=== PATIENT | male | born 1940 | race African-American/Black ===

== ENCOUNTER 2017-07-15 13:14 | Emergency (ER) | payer MEDICARE, BC ==
[2017-07-15 14:15] VITALS: BP 162/97
--- NOTE | 2017-07-15 17:32 | UC ---
Respiratory Complaint HPI - HPI Summary HPI Summary: 77 yo Bm c/o cough x 2 weeks associated with productive cough, now with f/c/ bodyaches and BAD WEISS - History of Current Complaint Chief Complaint: UCGeneralIllness Stated Complaint: FLU SYMPTOMS Time Seen by Provider: 07/15/17 16:23 Hx Obtained From: Patient, Family/Teletypewriter Operator Severity Initially: Moderate Severity Currently: Moderate Pain Intensity: 6 Character: Cough: Productive - Allergies/Home Medications Allergies/Adverse Reactions: Allergies Allergy/AdvReac Type Severity Reaction Status Date / Time Sulfa (Sulfonamide Allergy Bleeding Verified 07/15/17 14:15 Antibiotics) Home Medications: Home Medications Carisoprodol TAB* [Soma TAB*] 360 mg PO DAILY 07/15/17 [History Confirmed 07/15] Felodipine (NF) [Plendil (NF)] 10 mg PO DAILY 07/15/17 [History Confirmed ] Lovastatin (NF) [Mevacor (NF)] 1 tab PO DAILY 07/15/17 [History Confirmed ] oxyCODONE/Acetamin 10/325(NF) [Percocet 10/325 (NF)] 1 tab PO Q6HR 07/15/17 [ History Confirmed 07/15/17] PMH/Surg Hx/FS Hx/Imm Hx Cardiovascular History: Hypertension - Surgical History Surgical History: Yes Surgery Procedure, Year, and Place: 3 back surgeries. prostate - Social History Alcohol Use: Rare Substance Use Type: None Smoking Status (MU): Never Smoked Tobacco - Immunization History Most Recent Tetanus Shot: UTD Review of Systems Constitutional: Fever, Chills, Fatigue Skin: Negative Eyes: Negative ENT: Negative Respiratory: Negative, Cough, Other - PLeuritic CP with yellow sputum Cardiovascular: Negative Gastrointestinal: Negative Genitourinary: Negative Motor: Negative Neurovascular: Negative Musculoskeletal: Negative, Other: Neurological: Negative Psychological: Negative Is Patient Immunocompromised?: No All Other Systems Reviewed And Are Negative: Yes Physical Exam Triage Information Reviewed: Yes Vital Signs: Initial Vital Signs Temp 37.1 C 07/15/17 14:07 Pulse 86 07/15/17 14:07 Resp 20 07/15/17 14:07 BP 162/97 07/15/17 14:07 Pulse Ox 97 07/15/17 14:07 Eye Exam: Normal ENT Exam: Normal Dental Exam: Normal Neck exam: Normal Neck: Positive: 1 Respiratory: Positive: Rhonchi. Negative: Normal breath sounds, No respiratory distress, Accessory muscle use, Crackles Cardiovascular Exam: Normal Abdominal Exam: Normal Musculoskeletal Exam: Normal Neurological Exam: Normal Psychological Exam: Normal Skin Exam: Normal UC Diagnostic Evaluation - Laboratory O2 Sat by Pulse Oximetry: 97 Respiratory Course/Dx - Course Course Of Treatment: cough x2 weeks with rhonchi-will cover for bacterial bronchitis with Z matty - Differential Dx/Diagnosis Differential Diagnosis/HQI/PQRI: Bronchitis, Influenza Provider Diagnoses: Bronchitis. Flu-like Viral illness Discharge - Discharge Plan Condition: Stable Disposition: HOME Prescriptions: Azithromycin TAB* [Zithromax TAB (Z-MATTY) 250 mg #6 tabs] 2 tab PO .TODAY, THEN 1 DAILY #1 matty Patient Education Materials: Acute Bronchitis (ED) Referrals: Dale Gonzales MD [Primary Care Provider] - Additional Instructions: Drinks lots of FLUIDS, if sx worsen with shortness of breath with worsening cough and sputum production, then go to ER
== END 2017-07-15 17:20 | disposition home or self-care (01) ==
LOC: UCEAST 13:14
DX: J40 Bronchitis, not specified as acute or chronic (principal); B34.9 Viral infection, unspecified; I10 Essential (primary) hypertension
CPT/HCPCS: 87502; 99212; G0463

== ENCOUNTER 2017-08-04 13:43 | Emergency (ER) | payer MEDICARE, BC ==
[2017-08-04] MEDS ORDERED: NS 0.9% 1000 ML* 1,000 ML IV SCH (14:00)
[2017-08-04 14:03] VITALS: BP 149/116
--- NOTE | 2017-08-04 14:14 | UC ---
Palpitation/Dysrhythmia HP - HPI Summary HPI Summary: SUDDEN ONSET OF PALPITATIONS, DIZZINESS, SOB AND WEISS THIS MORNING AROUND 10:30 AM AFTER WALKING UP THE STAIRS. SYMPTOMS HAVE PERSISTED. DENIES CP, NAUSEA, SWEATS, VISUAL DISTURBANCES. NO PREVIOUS CARDIAC HX. IS HERE ACCOMPANYING PT. - History of Current Complaint Stated Complaint: ELEVATED HEART RATE Time Seen by Provider: 08/04/17 13:47 Hx Obtained From: Patient, Family/Photogrammetric Tech - Onset/Duration: Sudden Onset, Lasting Hours, Still Present Timing: Constant Severity Initially: Moderate Severity Currently: Moderate Pain Intensity: 0 Pain Scale Used: 0-10 Numeric Character: Fast Aggravating Factor(s): Exertion Alleviating Factor(s): Nothing Associated Signs & Symptoms: Positive: Lightheadedness, Dizzy, Shortness of Breath. Negative: Chest Pain, Diaphoresis, Nausea, Vomiting - Allergy/Home Medications Allergies/Adverse Reactions: Allergies Allergy/AdvReac Type Severity Reaction Status Date / Time Sulfa (Sulfonamide Allergy Bleeding Verified 08/04/17 13:48 Antibiotics) PMH/Surg Hx/FS Hx/Imm Hx Endocrine History: Dyslipidemia Cardiovascular History: Hypertension - Surgical History Surgical History: Yes Surgery Procedure, Year, and Place: 3 back surgeries. prostate - Family History Known Family History: Positive: Hypertension - Social History Alcohol Use: Rare Substance Use Type: None Smoking Status (MU): Never Smoked Tobacco - Immunization History Most Recent Tetanus Shot: UTD Review of Systems Constitutional: Negative Respiratory: Negative Cardiovascular: Palpitations Gastrointestinal: Negative Genitourinary: Negative Neurological: Headache, Other - DIZZY All Other Systems Reviewed And Are Negative: Yes Physical Exam Triage Information Reviewed: Yes Appearance: Well-Appearing, No Pain Distress, Well-Nourished Vital Signs: Initial Vital Signs Temp 97.7 F 08/04/17 13:58 Pulse 117 08/04/17 13:58 Resp 18 08/04/17 13:58 BP 149/116 08/04/17 13:58 Pulse Ox 97 08/04/17 13:58 Vital Signs Reviewed: Yes Eyes: Positive: Conjunctiva Clear ENT: Positive: Hearing grossly normal Neck: Positive: Supple, Nontender, No Lymphadenopathy Respiratory Exam: Normal Cardiovascular: Positive: Tachycardia Abdomen Description: Positive: Soft Musculoskeletal: Positive: No Edema Neurological: Positive: Alert Psychological: Positive: Normal Response To Family, Age Appropriate Behavior Skin: Negative: rashes Diagnostics - EKG Cardiac Rate: Tachycardia - 111BPM Cardiac Rhythm: Sinus: Normal Ectopy: None ST Segment: Non-Specific - T WAVE INVERSION INFERIOR AND LATERAL LEADS Palpitations Course/Dx - Differential Dx/Diagnosis Provider Diagnoses: PALPITATIONS/DIZZY/SOB - Physician Notifications Discussed Patient Care With: Dale Abreu - TO [facility] ED BY AMBULANCE Time Discussed With Above Provider: 14:05 Instructed by Provider To: MD Will See In ED Discharge - Discharge Plan Condition: Stable Disposition: TRANS HIGHER LVL OF CARE FAC Referrals: Dale Gonzales MD [Primary Care Provider] -
== END 2017-08-04 14:28 | disposition short-term general hospital (02) ==
LOC: UCEAST 13:43
DX: R00.2 Palpitations (principal); R42 Dizziness and giddiness; R06.02 Shortness of breath; R00.0 Tachycardia, unspecified; E78.5 Hyperlipidemia, unspecified; I10 Essential (primary) hypertension; Z88.2 Allergy status to sulfonamides
CPT/HCPCS: 93005; 96360; 99213; G0463

== ENCOUNTER 2017-08-04 14:42 | Emergency (ER) | payer MEDICARE, BC ==
[2017-08-04 15:45] LABS: ABS Basophils 0.1 10^3/ul (0-0.2); ABS Eosinophils 0.1 10^3/ul (0-0.6); ABS Monocytes 0.5 10^3/ul (0-0.8); ABS Neutrophils 4.2 10^3/ul (1.5-7.7); ABS Nucleated RBC 0 10^3/ul; Eosinophil % 1.8 % (0-6); Hematocrit 42 % (42-52); Hemoglobin 13.7 g/dl (14.0-18.0); Lymphocyte % 17.6 % (25-47); Mean Corpuscular HGB Conc 33 g/dl (31-36); Mean Corpuscular Hemoglobin 32 pg (27-31); Mean Corpuscular Volume 96 fL (80-94); Mean Platelet Volume 7 um3 (7.4-10.4); Nucleated Red Blood Cells % 0; Platelet Count 296 10^3/ul (150-450); Red Blood Count 4.34 10^6/ul (4.0-5.4); Red Cell Distribution Width 13 % (10.5-15); White Blood Count 5.9 10^3/ul (3.5-10.8)
--- NOTE | 2017-08-04 15:56 | RAD ---
Indication: Dyspnea. 2 views of the chest including dual energy PA views demonstrate no mediastinal shift. Heart is of normal size and configuration. Lung trejo are clear. When compared to previous exam of October 23, 2015 no significant change is noted. IMPRESSION: No active cardiopulmonary disease is identified.
[2017-08-04 15:58] LABS: EGFR Non-African American 56.5 (>60)
[2017-08-04] MEDS ORDERED: oxyCODONE/Acetamin 10/325(NF) TAB PO ONE (16:32)
[2017-08-04] MEDS ORDERED: oxyCODONE/Acetamin 5/325 MG* TAB ONE (16:42)
[2017-08-04] MEDS ORDERED: oxyCODONE/Acetamin 5/325 MG* TAB PO ONE (16:43)
[2017-08-04 17:13] VITALS: BP 146/90
--- NOTE | 2017-08-11 23:40 | ED ---
Jaswant Beach Julia, scribed for Dale Abreu MD on 08/04/17 at 1500 . Palpitations / Dysrhythmia - HPI Summary HPI Summary: This patient is a 77 year [facility] with a chief complaint of dizziness, elevated HR, and SOB since 10:30 this morning. Patient denies chest pain and lower extremity edema. Patient denies new medication, besides taking Excedrin once a day for recent headaches. Patient rates headaches 8/10 in severity. Patient has had three previous back operations and bladder and prostate surgery. - History of Current Complaint Hx Obtained From: Patient Onset/Duration: Sudden Onset, Lasting Hours, Still Present Timing: Constant Character: Fast Associated Signs & Symptoms: Dizzy, Shortness of Breath - Allergy/Home Medications Allergies/Adverse Reactions: Allergies Allergy/AdvReac Type Severity Reaction Status Date / Time Sulfa (Sulfonamide Allergy Bleeding Verified 08/04/17 13:48 Antibiotics) Home Medications: Home Medications Lovastatin (NF) [Mevacor (NF)] 40 mg PO DAILY WITH MEAL 08/04/17 [History Confirmed 08/04/17] PMH/Surg Hx/FS Hx/Imm Hx Cardiovascular History: Reports: Hx Hypertension Denies: Hx Myocardial Infarction Musculoskeletal History: Denies: Hx Scoliosis - Surgical History Surgery Procedure, Year, and Place: 3 back surgeries. prostate - Family History Known Family History: Positive: Hypertension - Social History Alcohol Use: Rare Substance Use Type: Reports: None Hx Tobacco Use: Yes - quit 12 years ago Smoking Status (MU): Former Smoker Review of Systems Positive: Other - elevated heart rate. Negative: Chest Pain Positive: Shortness Of Breath Negative: Edema Neurological: Other - dizzy All Other Systems Reviewed And Are Negative: Yes Physical Exam - Summary Physical Exam Summary: Appearance: Well appearing, no pain distress Skin: warm, dry, reflects adequate perfusion Head/face: normal Eyes: EOMI, BRANDIN ENT: normal Neck: supple, non-tender Respiratory: breath sounds present, rales at R base that cleared with cough Cardiovascular: RRR, pulses symmetrical Abdomen: non-tender, soft Bowel: present Musculoskeletal: normal, strength/ROM intact Neuro: normal, sensory motor intact, A&Ox3 Triage Information Reviewed: Yes Vital Signs Reviewed: Yes Diagnostics - Laboratory Result Diagrams: 08/04/17 15:32 08/04/17 15:32 Lab Statement: Any lab studies that have been ordered have been reviewed, and results considered in the medical decision making process. - Radiology CXR Radiology Interpretation Completed By: Radiologist - No active cardiopulmonary disease is identified. ED Physician has reviewed this report. - EKG 1511 Cardiac Rate: NL - at 95 BPM EKG Rhythm: Sinus Rhythm EKG Interpretation: LVH Course/Dx - Course Course Of Treatment: This patient presents with dizziness, elevated HR, and SOB since 10:30 this morning. Patient report recent headaches Patient denies chest pain and lower extremity edema. An EKG reveals LVH, but is of no acute concern. CXR is of no acute concern. Bloodowork is unremarkable. Patient is given Oxycodone. Patient is prescribed with Metoprolol to lower blood pressure. - Diagnoses Provider Diagnoses: Tachycardia, unspecified Discharge - Discharge Plan Condition: Good Disposition: HOME Prescriptions: Metoprolol Succinate XL TAB* [Toprol XL TAB*] 50 mg PO DAILY #30 tab.xl Patient Education Materials: Tachycardia (ED) Referrals: Dale Gonzales MD [Primary Care Provider] - The documentation as recorded by the Jaswant flores Julia accurately reflects the service I personally performed and the decisions made by , Dale Abreu MD.
== END 2017-08-04 17:13 | disposition home or self-care (01) ==
LOC: ED 14:42
DX: R00.0 Tachycardia, unspecified (principal); R42 Dizziness and giddiness; R06.02 Shortness of breath; Z86.79 Personal history of other diseases of the circulatory system; Z87.891 Personal history of nicotine dependence
CPT/HCPCS: 36415; 71046; 80053; 83880; 84443; 85025; 85379; 93005; 99283; A9270-GY

== ENCOUNTER 2017-12-09 17:00 | Emergency (ER) | payer BC, MEDICARE, OTHER ==
[2017-12-09] MEDS ORDERED: predniSONE TAB* 20 MG PO ONE (17:29)
[2017-12-09] MEDS ORDERED: oxyCODONE/Acetamin 5/325 MG* TAB PO ONE (17:29)
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
[2017-12-09 21:35] VITALS: BP 151/77
== END 2017-12-09 21:33 | disposition home or self-care (01) ==
LOC: ED 17:00
DX: S30.0XXA Contusion of lower back and pelvis, initial encounter (principal); V43.52XA Car driver injured in collision with other type car in traffic accident, initial encounter; Y92.410 Unspecified street and highway as the place of occurrence of the external cause; M54.30 Sciatica, unspecified side; M47.816 Spondylosis without myelopathy or radiculopathy, lumbar region; Z87.891 Personal history of nicotine dependence; Z88.2 Allergy status to sulfonamides; Z98.1 Arthrodesis status
CPT/HCPCS: 72110; 99283; A9270-GY; J7512

== ENCOUNTER 2023-07-16 17:26 | Inpatient (IN) ==
[2023-07-16 18:48] LABS: Hematocrit 46.9 % (38-53); Hemoglobin 15.5 g/dL (13.2-16.3); Mean Corpuscular Hemoglobin 30.9 pg (27-33); Mean Corpuscular Volume 93.7 fL (80-97); Mean Platelet Volume 8.1 fL (7.5-11.2); Platelet Count 311 10^3/uL (150-450); Red Blood Count 5.01 10^6/uL (4.06-5.63); Red Cell Distribution Width 16.4 % (12-17); White Blood Count 7.7 10^3/uL (3.6-10.2)
[2023-07-16 19:14] LABS: High Sens Troponin Baseline 23 pg/mL (<20)
[2023-07-16 19:18] LABS: ABS Basophils 0.1 10^3/uL (0.0-0.1); ABS Eosinophils 0.1 10^3/uL (0.0-0.5); ABS Lymphocytes 1.3 10^3/uL (1.0-4.8); ABS Monocytes 0.5 10^3/uL (0.0-1.1); ABS Neutrophils 5.6 10^3/uL (1.5-7.6); ABS Nucleated RBC 0.02 10^3/ul; ALT 52 U/L (7-52); Albumin 4.4 g/dL (3.2-5.2); Albumin/Globulin Ratio 1.4 (1-3); Alkaline Phosphatase 89 U/L (35-149); Anion Gap 12 mmol/L (2-16); Blood Urea Nitrogen 17 mg/dL (6-24); CO2 Carbon Dioxide 26 mmol/L (22-32); Calcium 9.8 mg/dL (8.6-10.3); Chloride 98 mmol/L (101-111); Creatinine, Serum 1.33 mg/dL (0.67-1.17); Eosinophil % 1.4 %; Globulin 3.1 g/dL (2-4); Glucose 85 mg/dL (70-100); Lymphocyte % 17.5 %; Nucleated Red Blood Cells % 0.2 %/100WBC (0.0-0.8); RBC Morphology Normal (Normal); Sodium 136 mmol/L (135-145); Total Bilirubin 0.9 mg/dL (0.2-1.0); Total Protein 7.5 g/dL (6.4-8.9)
[2023-07-16 20:37] LABS: Potassium Redraw 4.1 mmol/L (3.5-5.0)
[2023-07-16] MEDS: Furosemide 40 mg/4 ml IV VIAL IV SLOW PU ONE (20:44)
[2023-07-16 23:17] LABS: TSH Ultra Thyroid Stim Horm 3.23 mcIU/mL (0.34-5.60)
[2023-07-17 01:15] LABS: Urine Appearance No Cx Clear (Clear); Urine Bilirubin No Culture Negative (Negative); Urine Blood No Culture Negative (Negative); Urine Color No Culture Colorless; Urine Glucose No Culture Negative (Negative); Urine Ketones No Culture Negative (Negative); Urine Leukocytes No Culture Negative Leu/uL (Negative); Urine Nitrite No Culture Negative (Negative); Urine Protein No Culture Negative (Negative); Urine Specific Gravity No Cx 1.004 (1.002-1.030); Urine Urobilinogen No Cx Negative (Negative); Urine pH No Culture 6.5 (5.0-8.0)
[2023-07-17 01:36] LABS: Ur Squamous Epithelial No Cx Present /HPF (Absent); Urine Bacteria No Culture Absent /HPF (Absent); Urine Red Blood Cell No Cult Absent /HPF (0-Trace); Urine White Blood Cell No Cult Absent /HPF (0-Trace)
[2023-07-17] MEDS: Furosemide 40 mg/4 ml IV VIAL IV SLOW PU SCH (05:08)
[2023-07-17 07:01] LABS: Creatinine, Serum 1.18 mg/dL (0.67-1.17); Potassium 3.8 mmol/L (3.5-5.0); eGFR CKD-EPI 61.2 (>60)
[2023-07-17] MEDS: Mometasone/Formoter 200/5 MDI INH SCH (07:34)
[2023-07-17] MEDS: Aspirin EC 81 mg TAB.EC (enteric coated) PO SCH (11:45)
[2023-07-17] MEDS: oxyCODONE/Acetamin 5/325 mg TAB PO PRN (16:06)
[2023-07-17] MEDS: Magnesium Hydroxide LIQ 30 ML UDC PO PRN (16:13)
[2023-07-18 05:49] LABS: ABS Basophils 0.1 10^3/uL (0.0-0.1); ABS Eosinophils 0.1 10^3/uL (0.0-0.5); ABS Lymphocytes 1.1 10^3/uL (1.0-4.8); ABS Monocytes 0.7 10^3/uL (0.0-1.1); ABS Neutrophils 4.1 10^3/uL (1.5-7.6); ABS Nucleated RBC 0.01 10^3/ul; Eosinophil % 1.9 %; Hematocrit 38.4 % (38-53); Hemoglobin 12.7 g/dL (13.2-16.3); Lymphocyte % 18.4 %; Mean Corpuscular Hemoglobin 30.3 pg (27-33); Mean Corpuscular Volume 91.9 fL (80-97); Mean Platelet Volume 8.1 fL (7.5-11.2); Nucleated Red Blood Cells % 0.1 %/100WBC (0.0-0.8); Platelet Count 228 10^3/uL (150-450); Red Blood Count 4.18 10^6/uL (4.06-5.63); Red Cell Distribution Width 16.8 % (12-17); White Blood Count 6.1 10^3/uL (3.6-10.2)
[2023-07-18 06:05] LABS: Calcium 8.7 mg/dL (8.6-10.3); Creatinine, Serum 1.09 mg/dL (0.67-1.17); Potassium 3.5 mmol/L (3.5-5.0); eGFR CKD-EPI 67.3 (>60)
[2023-07-18] MEDS: Potassium Chlor 20 meq TAB.ER PO ONE (09:16)
[2023-07-18] MEDS: Furosemide 40 mg/4 ml IV VIAL IV ONE (13:00)
[2023-07-19 06:49] LABS: Calcium 8.7 mg/dL (8.6-10.3); Creatinine, Serum 1.37 mg/dL (0.67-1.17); Magnesium 2.2 mg/dL (1.9-2.7); eGFR CKD-EPI 51.2 (>60)
[2023-07-19] MEDS ORDERED: Sulfur Hexaflouride MICROSPHR 25 MG VIAL ONE (08:24)
[2023-07-19] MEDS: CMCS:Epleronone 25 mg TAB (NF) PO SCH (09:27)
[2023-07-19 12:09] LABS: ABS Basophils 0.1 10^3/uL (0.0-0.1); ABS Eosinophils 0.2 10^3/uL (0.0-0.5); ABS Lymphocytes 1.2 10^3/uL (1.0-4.8); ABS Monocytes 0.5 10^3/uL (0.0-1.1); ABS Neutrophils 4.5 10^3/uL (1.5-7.6); ABS Nucleated RBC 0.01 10^3/ul; Eosinophil % 2.4 %; Hematocrit 40.6 % (38-53); Hemoglobin 13.6 g/dL (13.2-16.3); Mean Corpuscular Hemoglobin 31.3 pg (27-33); Mean Corpuscular Hgb Conc 33.4 g/dL (31-36); Mean Corpuscular Volume 93.7 fL (80-97); Mean Platelet Volume 8.1 fL (7.5-11.2); Nucleated Red Blood Cells % 0.1 %/100WBC (0.0-0.8); Platelet Count 238 10^3/uL (150-450); Red Blood Count 4.33 10^6/uL (4.06-5.63); Red Cell Distribution Width 16.7 % (12-17); White Blood Count 6.4 10^3/uL (3.6-10.2)
[2023-07-19 12:20] LABS: Activated Partial Thrombo Time 28.2 seconds (26.0-38.0); INR 1.61 (0.83-1.13)
[2023-07-19 12:26] LABS: Calcium 8.9 mg/dL (8.6-10.3); Creatinine, Serum 1.26 mg/dL (0.67-1.17); Potassium 3.7 mmol/L (3.5-5.0); eGFR CKD-EPI 56.6 (>60)
[2023-07-19 16:54] LABS: HDL Cholesterol 53.9 mg/dL
[2023-07-19 17:07] LABS: Ferritin 39.3 ng/mL (24-336)
[2023-07-19] MEDS ORDERED: Heparin 5000 UNITS/ML 1 mL VIAL IV SCH (18:00)
[2023-07-19] MEDS: Heparin DRIP 25,000 UNITS BAG 25,000 UNITS/250 ML BAG IV SCH (22:25)
[2023-07-20 05:34] LABS: Hematocrit 41.3 % (38-53); Hemoglobin 13.5 g/dL (13.2-16.3); Mean Corpuscular Hemoglobin 30.6 pg (27-33); Mean Corpuscular Hgb Conc 32.8 g/dL (31-36); Mean Corpuscular Volume 93.1 fL (80-97); Mean Platelet Volume 8.4 fL (7.5-11.2); Platelet Count 233 10^3/uL (150-450); Red Blood Count 4.43 10^6/uL (4.06-5.63); Red Cell Distribution Width 17.1 % (12-17); White Blood Count 6.9 10^3/uL (3.6-10.2)
[2023-07-20 05:53] LABS: Calcium 9.1 mg/dL (8.6-10.3); Creatinine, Serum 1.16 mg/dL (0.67-1.17); Potassium 4.4 mmol/L (3.5-5.0); eGFR CKD-EPI 62.5 (>60)
[2023-07-20 06:14] LABS: ABS Basophils 0.1 10^3/uL (0.0-0.1); ABS Eosinophils 0.1 10^3/uL (0.0-0.5); ABS Lymphocytes 1.2 10^3/uL (1.0-4.8); ABS Monocytes 0.5 10^3/uL (0.0-1.1); Eosinophil % 1.4 %; Lymphocyte % 17.9 %; RBC Morphology Normal (Normal)
[2023-07-20 06:21] LABS: Magnesium 2.4 mg/dL (1.9-2.7)
[2023-07-20] MEDS ORDERED: Heparin 2 UNITS/ML 1000 mls 2,000 ML IV ONE (14:29)
[2023-07-20] MEDS ORDERED: Lidocaine 1% MPF 5 ML VIAL ONE (14:29)
[2023-07-20] MEDS ORDERED: Heparin 1,000 UNIT/ML 10 ml (10,000 UNITS) CATHLAB/DIALYSIS ONE (14:29)
[2023-07-20] MEDS ORDERED: nitroGLYCERIN DRIP 25,000 MCG/250 ML BTL ONE (14:29)
[2023-07-20] MEDS ORDERED: Midazolam 5 mg/5 ml VIAL 1 mg/ml 5 ml VIAL (5 mg) ONE (14:29)
[2023-07-20] MEDS ORDERED: fentaNYL 100 mcg/2 ml 50 MCG/ML VIAL ONE (14:29)
[2023-07-20] MEDS ORDERED: VERAPAMIL 2.5 MG/ML 2 ML VIAL ** 5 mg/2 ml ONE (14:29)
[2023-07-20] MEDS ORDERED: Iohexol 350 (CONTRAST) 100 ML PAK IV ONE ×2 (14:30→15:00)
[2023-07-20] MEDS: Midazolam 10 mg/10 ml VIAL 1 mg/ml 10 ml VIAL (10 mg) IV SLOW PU ONE (14:45)
[2023-07-20] MEDS: fentaNYL 100 mcg/2 ml 50 MCG/ML VIAL IV SLOW PU ONE (14:45)
[2023-07-20] MEDS ORDERED: Atropine 0.1 MG/ML 10 ml SYR (1 mg) ONE (14:57)
[2023-07-20 15:45] LABS: Venous Bicarbonate HCO3 25.9 mmol/L (24-28)
[2023-07-20 15:46] LABS: PCO2 Arterial 24 mmHg (35-45); PO2 Arterial 67 mmHg (80-100)
[2023-07-20] MEDS: NS 0.9% 1000 ml BAG 1,000 ML IV SCH (18:41)
[2023-07-21 05:43] LABS: Hematocrit 41.7 % (38-53); Hemoglobin 13.8 g/dL (13.2-16.3); Mean Corpuscular Volume 93.7 fL (80-97); Mean Platelet Volume 8.4 fL (7.5-11.2); Platelet Count 238 10^3/uL (150-450); Red Blood Count 4.44 10^6/uL (4.06-5.63); Red Cell Distribution Width 16.7 % (12-17); White Blood Count 6.4 10^3/uL (3.6-10.2)
[2023-07-21 06:19] LABS: ABS Basophils 0.1 10^3/uL (0.0-0.1); ABS Lymphocytes 1.2 10^3/uL (1.0-4.8); ABS Monocytes 0.6 10^3/uL (0.0-1.1); ABS Neutrophils 4.6 10^3/uL (1.5-7.6); ABS Nucleated RBC 0.01 10^3/ul; Eosinophil % 0.4 %; Lymphocyte % 18.2 %; Nucleated Red Blood Cells % 0.2 %/100WBC (0.0-0.8)
[2023-07-21 06:24] LABS: Calcium 9.6 mg/dL (8.6-10.3); Creatinine, Serum 1.25 mg/dL (0.67-1.17); Magnesium 2.4 mg/dL (1.9-2.7); Potassium 4.6 mmol/L (3.5-5.0); eGFR CKD-EPI 57.1 (>60)
[2023-07-21 06:40] LABS: RBC Morphology Normal (Normal)
[2023-07-21] MEDS: Bumetanide IV 0.25 MG/ML 4 ml VIAL (1 mg) IV SLOW PU SCH (09:49)
[2023-07-21 14:59] VITALS: BP 131/101
== END 2023-07-21 17:45 | disposition short-term general hospital (02) | DRG 286 ==
LOC: EDHOLD 17:26 → ED 17:26 → SUATTDRO 20:52 → MEDTELE 22:37
PROVIDERS: ADMIT Internal Medicine; ATTEND Student in an Organized Health Care Education/Training Program

== ENCOUNTER 2023-08-12 16:35 | Inpatient (IN) ==
[2023-08-12 18:00] LABS: ABS Basophils 0.1 10^3/uL (0.0-0.1); ABS Lymphocytes 1.1 10^3/uL (1.0-4.8); ABS Monocytes 0.7 10^3/uL (0.0-1.1); ABS Neutrophils 4.3 10^3/uL (1.5-7.6); Eosinophil % 0.7 %; Hematocrit 32.3 % (38-53); Hemoglobin 10.9 g/dL (13.2-16.3); Lymphocyte % 17.4 %; Mean Corpuscular Hemoglobin 32.1 pg (27-33); Mean Corpuscular Hgb Conc 33.7 g/dL (31-36); Mean Corpuscular Volume 95.4 fL (80-97); Mean Platelet Volume 6.8 fL (7.5-11.2); Platelet Count 353 10^3/uL (150-450); Red Blood Count 3.38 10^6/uL (4.06-5.63); Red Cell Distribution Width 17.7 % (12-17); White Blood Count 6.1 10^3/uL (3.6-10.2)
[2023-08-12 18:09] LABS: INR 1.12 (0.83-1.13)
[2023-08-12 18:53] LABS: Albumin 4.2 g/dL (3.2-5.2); Albumin/Globulin Ratio 1.6 (1-3); Calcium 8.5 mg/dL (8.6-10.3); Creatinine, Serum 1.91 mg/dL (0.67-1.17); Globulin 2.7 g/dL (2-4); Potassium 3.3 mmol/L (3.5-5.0); Total Bilirubin 0.7 mg/dL (0.2-1.0); Total Protein 6.9 g/dL (6.4-8.9); eGFR CKD-EPI 34.4 (>60)
[2023-08-12 19:13] LABS: Urine Appearance Clear; Urine Bilirubin Negative (Negative); Urine Blood Negative (Negative); Urine Color Colorless; Urine Glucose 2+ (>=150 mg/dL) (Negative); Urine Ketones Negative (Negative); Urine Nitrite Negative (Negative); Urine Protein Negative (Negative); Urine Specific Gravity 1.004 (1.002-1.030); Urine Urobilinogen Negative (Negative)
[2023-08-12 19:32] LABS: High Sensitivity Troponin 1 Hr 54 pg/mL (<20)
[2023-08-12] MEDS: Bumetanide IV 0.25 MG/ML 4 ml VIAL (1 mg) IV SLOW PU ONE (20:48)
[2023-08-12 21:49] LABS: Magnesium 1.9 mg/dL (1.9-2.7)
[2023-08-12] MEDS: Potassium EFFERVES 25 meq TAB PO ONE (22:11)
[2023-08-13] MEDS: oxyCODONE/Acetamin 5/325 mg TAB PO ONE (01:22)
[2023-08-13 07:05] LABS: ABS Basophils 0.1 10^3/uL (0.0-0.1); ABS Monocytes 0.5 10^3/uL (0.0-1.1); ABS Neutrophils 3.3 10^3/uL (1.5-7.6); ABS Nucleated RBC 0.01 10^3/ul; Eosinophil % 0.7 %; Hematocrit 32.5 % (38-53); Hemoglobin 10.9 g/dL (13.2-16.3); Lymphocyte % 19.5 %; Mean Corpuscular Hemoglobin 31.9 pg (27-33); Mean Corpuscular Hgb Conc 33.5 g/dL (31-36); Mean Corpuscular Volume 95.3 fL (80-97); Mean Platelet Volume 6.7 fL (7.5-11.2); Nucleated Red Blood Cells % 0.1 %/100WBC (0.0-0.8); Platelet Count 349 10^3/uL (150-450); Red Blood Count 3.41 10^6/uL (4.06-5.63); Red Cell Distribution Width 18.1 % (12-17); White Blood Count 4.9 10^3/uL (3.6-10.2)
[2023-08-13 07:42] LABS: Albumin 3.8 g/dL (3.2-5.2); Albumin/Globulin Ratio 1.5 (1-3); Calcium 8.7 mg/dL (8.6-10.3); Creatinine, Serum 1.74 mg/dL (0.67-1.17); Globulin 2.5 g/dL (2-4); Potassium 3.5 mmol/L (3.5-5.0); Total Bilirubin 0.7 mg/dL (0.2-1.0); Total Protein 6.3 g/dL (6.4-8.9); eGFR CKD-EPI 38.4 (>60)
[2023-08-13 09:56] LABS: Ferritin 1095.6 ng/mL (24-336)
[2023-08-13] MEDS: Pantoprazole VIAL 40 MG VIAL IV SCH (11:52)
[2023-08-13] MEDS: oxyCODONE/Acetamin 5/325 mg TAB PO PRN (12:48)
[2023-08-13] MEDS ORDERED: Polyethylene Glycol 3350 17 GM PACKET PO PRN (16:29)
[2023-08-13] MEDS: Mometasone/Formoter 200/5 MDI INH SCH (20:21)
[2023-08-14 04:55] LABS: ABS Eosinophils 0.1 10^3/uL (0.0-0.5); ABS Lymphocytes 1.1 10^3/uL (1.0-4.8); ABS Monocytes 0.4 10^3/uL (0.0-1.1); ABS Neutrophils 2.6 10^3/uL (1.5-7.6); Eosinophil % 1.4 %; Hematocrit 28.5 % (38-53); Hemoglobin 9.9 g/dL (13.2-16.3); Lymphocyte % 24.8 %; Mean Corpuscular Hgb Conc 34.7 g/dL (31-36); Mean Platelet Volume 6.5 fL (7.5-11.2); Nucleated Red Blood Cells % 0.1 %/100WBC (0.0-0.8); Platelet Count 318 10^3/uL (150-450); Red Cell Distribution Width 17.8 % (12-17); White Blood Count 4.2 10^3/uL (3.6-10.2)
[2023-08-14 05:49] LABS: Calcium 8.3 mg/dL (8.6-10.3); Creatinine, Serum 1.32 mg/dL (0.67-1.17); Phosphorus 3.6 mg/dL (2.5-5.0); Potassium 3.7 mmol/L (3.5-5.0); eGFR CKD-EPI 53.5 (>60)
[2023-08-14] MEDS: KCL 20 MEQ/100 ML IVPREMIX 20 MEQ/100 ML BAG IV ONE (10:19)
[2023-08-14 11:02] VITALS: BP 109/60
[2023-08-14] MEDS: Potassium Chlor 20 meq TAB.ER PO ONE (11:23)
== END 2023-08-14 14:40 | disposition home or self-care (01) | DRG 308 ==
LOC: ED 16:35 → EDHOLD 23:46 → ICU 08-13 07:47
PROVIDERS: ADMIT Internal Medicine Pulmonary Disease; ATTEND Internal Medicine Pulmonary Disease

== ENCOUNTER 2023-10-30 11:55 | Inpatient (IN) ==
[2023-10-30 13:11] LABS: ABS Basophils 0.1 10^3/uL (0.0-0.1); ABS Monocytes 0.5 10^3/uL (0.0-1.1); ABS Neutrophils 7.3 10^3/uL (1.5-7.6); ABS Nucleated RBC 0.02 10^3/ul; Eosinophil % 0.3 %; Hematocrit 39.4 % (38-53); Hemoglobin 13.1 g/dL (13.2-16.3); Lymphocyte % 10.9 %; Mean Corpuscular Hemoglobin 33.1 pg (27-33); Mean Corpuscular Hgb Conc 33.2 g/dL (31-36); Mean Corpuscular Volume 99.7 fL (80-97); Mean Platelet Volume 7.2 fL (7.5-11.2); Nucleated Red Blood Cells % 0.2 %/100WBC (0.0-0.8); Platelet Count 304 10^3/uL (150-450); Red Blood Count 3.95 10^6/uL (4.06-5.63); White Blood Count 8.9 10^3/uL (3.6-10.2)
[2023-10-30 13:20] LABS: INR 1.77 (0.83-1.13)
[2023-10-30 13:36] LABS: High Sens Troponin Baseline 35 pg/mL (<20)
[2023-10-30 13:39] LABS: ALT 63 U/L (7-52); AST 59 U/L (13-39); Albumin 4.1 g/dL (3.2-5.2); Albumin/Globulin Ratio 1.7 (1-3); Alkaline Phosphatase 100 U/L (35-149); Anion Gap 9 mmol/L (2-16); Blood Urea Nitrogen 28 mg/dL (6-24); CO2 Carbon Dioxide 23 mmol/L (22-32); Calcium 9.5 mg/dL (8.6-10.3); Chloride 100 mmol/L (101-111); Globulin 2.4 g/dL (2-4); Glucose 166 mg/dL (70-100); Potassium 4.8 mmol/L (3.5-5.0); Sodium 132 mmol/L (135-145); Total Bilirubin 1.4 mg/dL (0.2-1.0); Total Protein 6.5 g/dL (6.4-8.9); eGFR CKD-EPI 34.6 (>60)
[2023-10-30] MEDS ORDERED: .Amiodarone 24HR ONLY IV Protocol Order Note IV ONE (13:49)
[2023-10-30 14:01] LABS: Digoxin < 0.2 ng/ml (0.8-2.0); Magnesium 2.3 mg/dL (1.9-2.7)
[2023-10-30] MEDS: Amiodarone 150 mg IVPREMIX 150 MG/100 ML BAG IV ONE ×2 (14:15→20:11)
[2023-10-30 14:17] LABS: TSH Ultra Thyroid Stim Horm 6.59 mcIU/mL (0.34-5.60)
[2023-10-30] MEDS: Amiodarone 360 MG IVPREMIX 360 MG/200 ML BAG IV SCH ×2 (14:28→20:49)
[2023-10-30 14:42] LABS: High Sensitivity Troponin 1 Hr 33 pg/mL (<20)
[2023-10-30] MEDS: oxyCODONE SR 10 mg TAB PO ONE (14:50)
[2023-10-30] MEDS: DEXTROSE 5% SCH (16:20)
[2023-10-30] MEDS: MILRINONE SCH (16:20)
[2023-10-30] MEDS ORDERED: DEXTROSE 5% SCH (17:15)
[2023-10-30] MEDS ORDERED: MILRINONE SCH (17:15)
[2023-10-30] MEDS ORDERED: [UNRECOGNIZED DRUG - OTHER] SCH (17:15)
[2023-10-30 17:28] LABS: PCO2 Arterial <20 mmHg (35-45); PO2 Arterial 211 mmHg (80-100)
[2023-10-30] MEDS: fentaNYL 100 mcg/2 ml 50 MCG/ML VIAL IV SLOW PU PRN (17:40)
[2023-10-30] MEDS: Midazolam 10 mg/10 ml VIAL 1 mg/ml 10 ml VIAL (10 mg) ONE (17:40)
[2023-10-30] MEDS ORDERED: Docusate LIQ 100 MG/10 ML UDC PO PRN (18:02)
[2023-10-30] MEDS: Midazolam 2 mg/2 ml VIAL 1 mg/ml 2 ml VIAL (2 mg) IV SLOW PU PRN (18:37)
[2023-10-30] MEDS: Flumazenil 0.5 mg/5 ml 0.1 MG/ML 5 ml VIAL ONE (18:38)
[2023-10-30] MEDS: Flumazenil 0.5 mg/5 ml 0.1 MG/ML 5 ml VIAL IV ONE ×2 (18:40→19:33)
[2023-10-30] MEDS: Sulfur Hexaflouride MICROSPHR 25 MG VIAL IV ONE (18:40)
[2023-10-30] MEDS ORDERED: Zosyn per Pharmacy NOTE FOLLOW UP SCH (19:00)
[2023-10-30] MEDS: fentaNYL 100 mcg/2 ml 50 MCG/ML VIAL ONE (19:10)
[2023-10-30 19:17] LABS: C Reactive Protein 3.03 mg/L (<8.01)
[2023-10-30] MEDS: Naloxone 4 mg VIAL 0.4 MG/ML 10 ml VIAL (4 mg) ONE (19:30)
[2023-10-30] MEDS: Naloxone 0.4 mg VIAL 0.4 mg/ml 1 ml VIAL IV PUSH ONE (19:40)
[2023-10-30] MEDS: Piperacillin/Tazobac 3.375 BAG 3.375 GM/100 ML BAG IV ONE (19:57)
[2023-10-30] MEDS: Bumetanide IV 0.25 MG/ML 4 ml VIAL (1 mg) IV SLOW PU ONE (20:20)
[2023-10-31] MEDS: ZOSYN 3.375 GM Q8H per EXTENDED INFUSION IV SCH (01:07)
[2023-10-31] MEDS: oxyCODONE/Acetamin 5/325 mg TAB PO PRN (02:34)
[2023-10-31 03:00] LABS: Urine Appearance Clear; Urine Bilirubin Negative (Negative); Urine Blood Negative (Negative); Urine Color Yellow; Urine Glucose Negative (Negative); Urine Ketones Trace (Negative); Urine Nitrite Negative (Negative); Urine Protein 1+ (>=30 mg/dL) (Negative); Urine Specific Gravity 1.026 (1.002-1.030); Urine Urobilinogen 1+ (Negative); Urine pH 5.5 (5.0-8.0)
[2023-10-31 03:06] LABS: Urine Bacteria Absent /HPF (Absent); Urine Red Blood Cell Absent /HPF (0-Trace); Urine Squamous Epithelial Cell Present /HPF (Absent); Urine White Blood Cell Trace(0-5/hpf) /HPF (0-Trace)
[2023-10-31 04:16] LABS: ABS Lymphocytes 0.5 10^3/uL (1.0-4.8); ABS Monocytes 0.8 10^3/uL (0.0-1.1); ABS Neutrophils 7.4 10^3/uL (1.5-7.6); ABS Nucleated RBC 0.02 10^3/ul; Hematocrit 42.4 % (38-53); Hemoglobin 13.9 g/dL (13.2-16.3); Lymphocyte % 5.9 %; Mean Corpuscular Hemoglobin 32.8 pg (27-33); Mean Corpuscular Hgb Conc 32.8 g/dL (31-36); Mean Platelet Volume 7.8 fL (7.5-11.2); Nucleated Red Blood Cells % 0.2 %/100WBC (0.0-0.8); Platelet Count 295 10^3/uL (150-450); Red Blood Count 4.24 10^6/uL (4.06-5.63); Red Cell Distribution Width 14.1 % (12-17); White Blood Count 8.8 10^3/uL (3.6-10.2)
[2023-10-31 05:18] LABS: Albumin/Globulin Ratio 1.7 (1-3); Calcium 9.7 mg/dL (8.6-10.3); Creatinine, Serum 2.51 mg/dL (0.67-1.17); Globulin 2.4 g/dL (2-4); Magnesium 2.3 mg/dL (1.9-2.7); Phosphorus 6.9 mg/dL (2.5-5.0); Potassium 6.9 mmol/L (3.5-5.0); Total Bilirubin 1.7 mg/dL (0.2-1.0); Total Protein 6.4 g/dL (6.4-8.9); eGFR CKD-EPI 24.8 (>60)
[2023-10-31] MEDS: CALCIUM GLUCONATE 1GM/50ML NS 1 GM/50 ML BAG IV ONE (05:41)
[2023-10-31] MEDS: Sodium Bicarbonate 8.4% SYR 50 ml SYRINGE IV ONE (05:46)
[2023-10-31] MEDS: Dextrose 50% Syringe 50 ml 25 GM/50 ML SYRINGE IV PUSH ONE (05:49)
[2023-10-31] MEDS: Flumazenil 0.5 mg/5 ml 0.1 MG/ML 5 ml VIAL IV ONE (06:00)
[2023-10-31] MEDS: SODIUM ZIRCONIUM CYCLOSILICATE 10 GM PACKET PO ONE (06:23)
[2023-10-31] MEDS: Bumetanide IV 0.25 MG/ML 4 ml VIAL (1 mg) IV SLOW PU SCH (08:06)
[2023-10-31] MEDS: CMC:DAPAGLIFLOZIN 10 MG TAB (NF) PO SCH (08:21)
[2023-10-31] MEDS ORDERED: Epleronone 25 mg TAB (NF) PO SCH (09:00)
[2023-10-31] MEDS ORDERED: Potassium Chlor 20 meq TAB.ER PO SCH (09:00)
[2023-10-31] MEDS ORDERED: CMC:Epleronone 25 mg TAB (NF) PO SCH (09:00)
[2023-10-31 09:23] LABS: Calcium 9.4 mg/dL (8.6-10.3); Creatinine, Serum 2.46 mg/dL (0.67-1.17); Potassium 4.7 mmol/L (3.5-5.0); eGFR CKD-EPI 25.4 (>60)
[2023-10-31 09:36] LABS: Albumin 3.7 g/dL (3.2-5.2); Albumin/Globulin Ratio 1.8 (1-3); Globulin 2.1 g/dL (2-4); Magnesium 2.2 mg/dL (1.9-2.7); Total Bilirubin 1.3 mg/dL (0.2-1.0); Total Protein 5.8 g/dL (6.4-8.9)
[2023-10-31] MEDS: Milrinone 200 MCG/ML PREMIXBAG 20,000 MCG/100 ML BAG IV SCH (14:57)
[2023-10-31] MEDS: Amiodarone 400 mg TAB PO SCH (19:51)
[2023-10-31] MEDS: ZOSYN 3.375 GM Q12H per EXTENDED INFUSION IV SCH (19:51)
[2023-11-01 04:35] LABS: ABS Basophils 0.1 10^3/uL (0.0-0.1); ABS Lymphocytes 0.7 10^3/uL (1.0-4.8); ABS Monocytes 0.5 10^3/uL (0.0-1.1); ABS Neutrophils 7.2 10^3/uL (1.5-7.6); ABS Nucleated RBC 0.03 10^3/ul; Eosinophil % 0.5 %; Hematocrit 35.6 % (38-53); Lymphocyte % 8.3 %; Mean Corpuscular Hemoglobin 32.9 pg (27-33); Mean Corpuscular Hgb Conc 33.8 g/dL (31-36); Mean Corpuscular Volume 97.4 fL (80-97); Mean Platelet Volume 8.1 fL (7.5-11.2); Nucleated Red Blood Cells % 0.4 %/100WBC (0.0-0.8); Platelet Count 221 10^3/uL (150-450); Red Blood Count 3.66 10^6/uL (4.06-5.63); Red Cell Distribution Width 14.2 % (12-17); White Blood Count 8.5 10^3/uL (3.6-10.2)
[2023-11-01 05:10] LABS: Calcium 8.4 mg/dL (8.6-10.3); Creatinine, Serum 2.29 mg/dL (0.67-1.17); Potassium 3.7 mmol/L (3.5-5.0); eGFR CKD-EPI 27.6 (>60)
[2023-11-01 05:31] LABS: Albumin 3.3 g/dL (3.2-5.2); Albumin/Globulin Ratio 1.6 (1-3); Globulin 2.1 g/dL (2-4); Magnesium 1.9 mg/dL (1.9-2.7); Phosphorus 4.8 mg/dL (2.5-5.0); Total Bilirubin 1.6 mg/dL (0.2-1.0); Total Protein 5.4 g/dL (6.4-8.9)
[2023-11-01] MEDS: Magnesium Sulfate IV 1GM/100ML 1 GM/100 ML BAG IV ONE (07:43)
[2023-11-01 08:06] LABS: INR 4.55 (0.83-1.13)
[2023-11-01 10:49] LABS: ABS Eosinophils 0.1 10^3/uL (0.0-0.5); ABS Lymphocytes 0.6 10^3/uL (1.0-4.8); ABS Monocytes 0.4 10^3/uL (0.0-1.1); ABS Neutrophils 7.4 10^3/uL (1.5-7.6); ABS Nucleated RBC 0.04 10^3/ul; Eosinophil % 0.7 %; Hematocrit 38.5 % (38-53); Hemoglobin 12.6 g/dL (13.2-16.3); Mean Corpuscular Hemoglobin 32.1 pg (27-33); Mean Corpuscular Hgb Conc 32.8 g/dL (31-36); Mean Corpuscular Volume 98.1 fL (80-97); Nucleated Red Blood Cells % 0.4 %/100WBC (0.0-0.8); Platelet Count 218 10^3/uL (150-450); Red Blood Count 3.92 10^6/uL (4.06-5.63); Red Cell Distribution Width 14.3 % (12-17); White Blood Count 8.5 10^3/uL (3.6-10.2)
[2023-11-01 11:08] LABS: Indirect Bilirubin 1.5 mg/dL (0.3-1.0); Total Bilirubin 2.5 mg/dL (0.2-1.0)
[2023-11-01 11:38] LABS: Calcium 8.4 mg/dL (8.6-10.3); Creatinine, Serum 2.25 mg/dL (0.67-1.17); Potassium 3.7 mmol/L (3.5-5.0); eGFR CKD-EPI 28.2 (>60)
[2023-11-01] MEDS ORDERED: Heparin 2 UNITS/ML 1000 mls 2,000 ML IV ONE (15:18)
[2023-11-01] MEDS ORDERED: Lidocaine 1% MPF 5 ML VIAL ONE (16:10)
[2023-11-01] MEDS: Milrinone 200 MCG/ML PREMIXBAG 20,000 MCG/100 ML BAG IV SCH (18:30)
[2023-11-02 05:47] LABS: INR 3.34 (0.83-1.13)
[2023-11-02 05:52] LABS: Hematocrit 42.6 % (38-53); Hemoglobin 14.1 g/dL (13.2-16.3); Mean Corpuscular Hemoglobin 32.7 pg (27-33); Mean Corpuscular Hgb Conc 33.1 g/dL (31-36); Mean Corpuscular Volume 98.9 fL (80-97); Red Blood Count 4.31 10^6/uL (4.06-5.63); White Blood Count 10.1 10^3/uL (3.6-10.2)
[2023-11-02 06:49] LABS: ALT 2030 U/L (7-52); Albumin 3.5 g/dL (3.2-5.2); Albumin/Globulin Ratio 1.6 (1-3); Alkaline Phosphatase 83 U/L (35-149); Blood Urea Nitrogen 31 mg/dL (6-24); CO2 Carbon Dioxide 31 mmol/L (22-32); Calcium 8.4 mg/dL (8.6-10.3); Chloride 94 mmol/L (101-111); Creatinine, Serum 1.77 mg/dL (0.67-1.17); Globulin 2.2 g/dL (2-4); Glucose 93 mg/dL (70-100); Sodium 138 mmol/L (135-145); Total Protein 5.7 g/dL (6.4-8.9); eGFR CKD-EPI 37.6 (>60)
[2023-11-02 06:52] LABS: Anion Gap 13 mmol/L (2-16)
[2023-11-02 08:53] LABS: ABS Eosinophils 0.1 10^3/uL (0.0-0.5); ABS Lymphocytes 0.8 10^3/uL (1.0-4.8); ABS Monocytes 0.5 10^3/uL (0.0-1.1); ABS Neutrophils 8.7 10^3/uL (1.5-7.6); Eosinophil % 0.5 %; Lymphocyte % 8.2 %; Mean Platelet Volume 8.3 fL (7.5-11.2); Platelet Count 225 10^3/uL (150-450)
[2023-11-02 12:14] LABS: Calcium 8.8 mg/dL (8.6-10.3); Creatinine, Serum 1.78 mg/dL (0.67-1.17); Potassium 3.5 mmol/L (3.5-5.0); eGFR CKD-EPI 37.4 (>60)
[2023-11-02 12:35] LABS: Albumin 3.6 g/dL (3.2-5.2); Albumin/Globulin Ratio 1.6 (1-3); Globulin 2.3 g/dL (2-4); Total Bilirubin 5.7 mg/dL (0.2-1.0); Total Protein 5.9 g/dL (6.4-8.9)
[2023-11-02] MEDS: Potassium EFFERVES 25 meq TAB PO ONE (13:14)
[2023-11-02 14:44] LABS: Direct Bilirubin 2.2 mg/dL (0.03-0.18); Indirect Bilirubin 3.5 mg/dL (0.3-1.0)
[2023-11-03] MEDS: Potassium Chlor 20 meq TAB.ER PO ONE (02:47)
[2023-11-03 04:51] LABS: INR 2.36 (0.83-1.13)
[2023-11-03 05:21] LABS: Indirect Bilirubin 4.2 mg/dL (0.3-1.0); Magnesium 2.1 mg/dL (1.9-2.7); Total Bilirubin 6.2 mg/dL (0.2-1.0)
[2023-11-03 05:23] LABS: Calcium 8.7 mg/dL (8.6-10.3); Creatinine, Serum 1.54 mg/dL (0.67-1.17); Potassium 4.3 mmol/L (3.5-5.0); eGFR CKD-EPI 44.5 (>60)
[2023-11-03 05:28] LABS: ABS Basophils 0.1 10^3/uL (0.0-0.1); ABS Eosinophils 0.1 10^3/uL (0.0-0.5); ABS Monocytes 0.9 10^3/uL (0.0-1.1); ABS Neutrophils 8.8 10^3/uL (1.5-7.6); Eosinophil % 0.9 %; Hematocrit 37.8 % (38-53); Hemoglobin 12.7 g/dL (13.2-16.3); Lymphocyte % 9.4 %; Mean Corpuscular Hemoglobin 33.5 pg (27-33); Mean Corpuscular Hgb Conc 33.5 g/dL (31-36); Mean Corpuscular Volume 100.1 fL (80-97); Mean Platelet Volume 8.5 fL (7.5-11.2); Platelet Count 224 10^3/uL (150-450); Red Blood Count 3.78 10^6/uL (4.06-5.63); Red Cell Distribution Width 13.7 % (12-17); White Blood Count 10.9 10^3/uL (3.6-10.2)
[2023-11-03 05:45] LABS: Albumin 3.4 g/dL (3.2-5.2); Albumin/Globulin Ratio 1.6 (1-3); Globulin 2.1 g/dL (2-4); Total Bilirubin 6.1 mg/dL (0.2-1.0); Total Protein 5.5 g/dL (6.4-8.9)
[2023-11-03 08:45] LABS: TSH Ultra Thyroid Stim Horm 2.46 mcIU/mL (0.34-5.60)
[2023-11-03 08:46] LABS: Free T3 2.04 pg/mL (2.5-3.9)
[2023-11-03 08:47] LABS: Free T4 1.38 ng/dL (0.61-1.12)
[2023-11-03 09:36] LABS: Immature Retic Fraction 0.34
[2023-11-03 09:37] LABS: Corrected Retic Count 7.4 % (0.5-2.2); Hematocrit for Retic CNT 37.8 % (38-53); RBC Retic Count 3.78 10^6/ul (4.06-5.63)
[2023-11-03] MEDS: Milrinone 200 MCG/ML PREMIXBAG 20,000 MCG/100 ML BAG IV SCH ×2 (13:51→15:22)
[2023-11-03] MEDS: Senna TAB 8.6 mg TAB PO PRN (22:24)
[2023-11-04 06:03] LABS: Calcium 8.5 mg/dL (8.6-10.3); Creatinine, Serum 1.25 mg/dL (0.67-1.17); Potassium 4.3 mmol/L (3.5-5.0); eGFR CKD-EPI 57.1 (>60)
[2023-11-04 06:07] LABS: Hematocrit 33.1 % (38-53); Mean Corpuscular Hemoglobin 33.7 pg (27-33); Mean Corpuscular Hgb Conc 33.2 g/dL (31-36); Mean Corpuscular Volume 101.5 fL (80-97); Mean Platelet Volume 8.3 fL (7.5-11.2); Platelet Count 230 10^3/uL (150-450); Red Blood Count 3.26 10^6/uL (4.06-5.63); Red Cell Distribution Width 13.7 % (12-17)
[2023-11-04 06:19] LABS: Albumin 3.2 g/dL (3.2-5.2); Albumin/Globulin Ratio 1.7 (1-3); Globulin 1.9 g/dL (2-4); Total Bilirubin 6.4 mg/dL (0.2-1.0); Total Protein 5.1 g/dL (6.4-8.9)
[2023-11-04 06:26] LABS: INR 2.05 (0.83-1.13)
[2023-11-04 06:57] LABS: ABS Basophils 0.1 10^3/uL (0.0-0.1); ABS Eosinophils 0.2 10^3/uL (0.0-0.5); ABS Lymphocytes 1.3 10^3/uL (1.0-4.8); ABS Monocytes 1.8 10^3/uL (0.0-1.1); ABS Neutrophils 10.8 10^3/uL (1.5-7.6); Eosinophil % 1.2 %; Macrocytosis 1+; Polychromasia 1+
[2023-11-04 07:00] LABS: White Blood Count 11.9 10^3/uL (3.6-10.2)
[2023-11-04 07:01] LABS: ABS Basophils 0.1 10^3/ul (0.0-0.1); ABS Eosinophils 0.1 10^3/ul (0.0-0.5); ABS Lymphocytes 1.1 10^3/ul (1.0-4.8); ABS Monocytes 1.3 10^3/ul (0.0-1.1); ABS Neutrophils 11.5 10^3/ul (1.5-7.6)
[2023-11-04] MEDS: CMC:Epleronone 25 mg TAB (NF) PO SCH (08:36)
[2023-11-04 09:59] LABS: Direct Bilirubin 2.3 mg/dL (0.03-0.18); Indirect Bilirubin 4.1 mg/dL (0.3-1.0)
[2023-11-05 05:27] LABS: Calcium 8.3 mg/dL (8.6-10.3); Creatinine, Serum 1.34 mg/dL (0.67-1.17); Potassium 4.3 mmol/L (3.5-5.0); eGFR CKD-EPI 52.6 (>60)
[2023-11-05 05:53] LABS: Albumin 3.2 g/dL (3.2-5.2); Albumin/Globulin Ratio 1.7 (1-3); Globulin 1.9 g/dL (2-4); Magnesium 2.1 mg/dL (1.9-2.7); Total Protein 5.1 g/dL (6.4-8.9)
[2023-11-05 06:13] LABS: ABS Basophils 0.1 10^3/uL (0.0-0.1); ABS Eosinophils 0.3 10^3/uL (0.0-0.5); ABS Lymphocytes 1.5 10^3/uL (1.0-4.8); ABS Monocytes 1.6 10^3/uL (0.0-1.1); ABS Neutrophils 8.4 10^3/uL (1.5-7.6); Eosinophil % 2.6 %; Hematocrit 31.3 % (38-53); Hemoglobin 10.2 g/dL (13.2-16.3); Lymphocyte % 12.4 %; Macrocytosis 1+; Mean Corpuscular Hemoglobin 33.6 pg (27-33); Mean Corpuscular Hgb Conc 32.5 g/dL (31-36); Mean Corpuscular Volume 103.4 fL (80-97); Mean Platelet Volume 7.9 fL (7.5-11.2); Platelet Count 242 10^3/uL (150-450); Polychromasia 1+; Red Blood Count 3.02 10^6/uL (4.06-5.63); Red Cell Distribution Width 14.4 % (12-17)
[2023-11-05 16:03] VITALS: BP 130/77
== END 2023-11-05 16:40 | disposition home or self-care (01) | DRG 286 ==
LOC: ED 11:55 → EDHOLD 15:04 → ICU 15:20
PROVIDERS: ADMIT Internal Medicine; ATTEND Internal Medicine